=== PATIENT | male | born 1985 | race Caucasian/White ===

== ENCOUNTER 2017-11-20 20:30 | Emergency (ER) | payer SELFPAY | END 2017-11-20 22:35 | disposition home or self-care (01) | LOC: D.ER 20:30 | DX: T40.1X1A Poisoning by heroin, accidental (unintentional), initial encounter (principal); Y92.89 Other specified places as the place of occurrence of the external cause; F17.200 Nicotine dependence, unspecified, uncomplicated; R00.0 Tachycardia, unspecified ==

== ENCOUNTER 2018-01-03 15:44 | Emergency (ER) | payer SELFPAY | END 2018-01-03 16:16 | disposition left against medical advice (07) | LOC: D.ER 15:44 | DX: F11.10 Opioid abuse, uncomplicated (principal); F17.200 Nicotine dependence, unspecified, uncomplicated ==

== ENCOUNTER 2018-08-12 15:56 | Emergency (ER) | payer MEDICAID ==
[~2018-08-12] VITALS: Ht 165.1 cm; Wt 78.2 kg
[2018-08-12 16:19] VITALS: Ht 165.1 cm; Wt 78.2 kg
[2018-08-12 19:21] VITALS: BP 122/84
== END 2018-08-12 20:05 | disposition home or self-care (01) ==
LOC: D.ER 15:56
DX: F07.81 Postconcussional syndrome (principal); M54.5 Low back pain; S32.019A Unspecified fracture of first lumbar vertebra, initial encounter for closed fracture; V49.9XXA Car occupant (driver) (passenger) injured in unspecified traffic accident, initial encounter; Y93.89 Activity, other specified; Y92.410 Unspecified street and highway as the place of occurrence of the external cause; R41.0 Disorientation, unspecified; R42 Dizziness and giddiness; F17.200 Nicotine dependence, unspecified, uncomplicated

== ENCOUNTER 2018-12-12 09:11 | Inpatient (IN) | payer MEDICAID ==
[~2018-12-12] VITALS: Ht 297.2 cm; Wt 83.2 kg
[2018-12-12] MEDS ORDERED: SULFAMETHOXAZOL1 TA3 PO (09:19)
[2018-12-12] MEDS ORDERED: ADDERALL 20 MG20 M1 PO (09:20)
[2018-12-12] MEDS ORDERED: AMBIEN10 MG PO (09:21)
[2018-12-12] MEDS ORDERED: BUPRENORPHINE HC8 MG SL (09:21)
[2018-12-12] MEDS ORDERED: XANAX2 MG PO (09:22)
[2018-12-12] MEDS ORDERED: VALTREX500 MG PO (09:22)
[2018-12-12 11:26] LABS: BASOPHILS 0.5 % (0-2); EOSINOPHILS 4.6 % (0-7); HEMATOCRIT 40.8 % (42.0-54.0); HEMOGLOBIN 14.1 g/dL (13.5-17.5); IMMATURE GRANULOCYTES 0.1 % (0-5); LYMPHOCYTES 20.7 % (15-50); MCHC 34.6 g/dL (31.0-37.0); MCV 89.7 fL (80.0-100.0); MEAN PLATELET VOLUME 9.5 fL (7.4-10.4); MONOCYTES 9.6 % (2-11); NEUTROPHILS 64.5 % (40-80); PLATELET COUNT 206 10x3/uL (130-400); RBC 4.55 10x6/uL (4.20-6.10); RDW 13.5 % (11.5-14.5); WBC 9.2 10x3/uL (4.8-10.8)
[2018-12-12 11:38] VITALS: BP 135/86
[2018-12-12 11:40] LABS: ALBUMIN 3.8 g/dL (3.4-5.0); ALKALINE PHOSPHATASE 82 U/L (46-116); ALT (SGPT) 17 U/L (10-68); BILIRUBIN - TOTAL 0.29 mg/dL (0.2-1.3); CALC OSMOLALITY 274 mosm/kg (275-300); CARBON DIOXIDE 27.5 mmol/L (21.0-32.0); CHLORIDE - SERUM 101 mmol/L (98-107); CREATININE - SERUM 0.9 mg/dL (0.6-1.3); GLUCOSE 116 mg/dL (74-106); POTASSIUM - SERUM 3.6 mmol/L (3.5-5.1); PROTEIN - SERUM 7.5 g/dL (6.4-8.2); SODIUM 138 mmol/L (136-145); UREA NITROGEN 7 mg/dL (7-18); eGFR NON AFRICAN AMERICAN > 90 mL/min (90-120)
[2018-12-12 15:11] VITALS: Ht 297.2 cm; Wt 83.2 kg
[2018-12-12 15:57] VITALS: BP 120/73
[2018-12-12 20:00] VITALS: BP 112/70
[2018-12-13] VITALS: BP 99/54
[2018-12-13 04:30] VITALS: BP 90/43
[2018-12-13 07:30] LABS: BASOPHILS 0.6 % (0-2); EOSINOPHILS 7.4 % (0-7); HEMATOCRIT 40.2 % (42.0-54.0); HEMOGLOBIN 13.9 g/dL (13.5-17.5); IMMATURE GRANULOCYTES 0.1 % (0-5); LYMPHOCYTES 22.9 % (15-50); MCH 30.8 pg (26.0-34.0); MCHC 34.6 g/dL (31.0-37.0); MCV 88.9 fL (80.0-100.0); MEAN PLATELET VOLUME 9.8 fL (7.4-10.4); MONOCYTES 12.2 % (2-11); NEUTROPHILS 56.8 % (40-80); RBC 4.52 10x6/uL (4.20-6.10); RDW 13.6 % (11.5-14.5); WBC 7.1 10x3/uL (4.8-10.8)
[2018-12-13 07:37] LABS: PLATELET COUNT 251 10x3/uL (130-400)
[2018-12-13 07:56] LABS: CALC OSMOLALITY 272 mosm/kg (275-300); CALCIUM 8.6 mg/dL (8.5-10.1); CARBON DIOXIDE 26.5 mmol/L (21.0-32.0); CHLORIDE - SERUM 103 mmol/L (98-107); CREATININE - SERUM 0.9 mg/dL (0.6-1.3); GLUCOSE 104 mg/dL (74-106); POTASSIUM - SERUM 3.8 mmol/L (3.5-5.1); SODIUM 138 mmol/L (136-145); UREA NITROGEN 5 mg/dL (7-18); eGFR NON AFRICAN AMERICAN > 90 mL/min (90-120)
[2018-12-13 09:01] VITALS: BP 118/72
[2018-12-13 12:08] VITALS: BP 96/58
[2018-12-13 15:26] VITALS: BP 116/58
[2018-12-13 18:51] LABS: APPEARANCE CLEAR (CLEAR); COLOR STRAW (YELLOW)
[2018-12-13 18:52] LABS: BILIRUBIN NEGATIVE (NEGATIVE); GLUCOSE NEGATIVE (NEGATIVE); KETONE NEGATIVE (NEGATIVE); NITRITE NEGATIVE (NEGATIVE); PROTEIN NEGATIVE (NEGATIVE); UROBILINOGEN NORMAL (NORMAL)
[2018-12-13 19:06] LABS: UDS - AMPHET NEGATIVE QUAL (NEGATIVE); UDS - BARB NEGATIVE QUAL (NEGATIVE); UDS - BENZO POSITIVE QUAL (NEGATIVE); UDS - COCAINE NEGATIVE QUAL (NEGATIVE); UDS - OPIATE NEGATIVE QUAL (NEGATIVE); UDS - PCP NEGATIVE QUAL (NEGATIVE); UDS - THC NEGATIVE QUAL (NEGATIVE)
[2018-12-13 20:31] VITALS: BP 113/58; BP 146/78
[2018-12-14] VITALS: BP 90/42
[2018-12-14 05:42] VITALS: BP 83/43
[2018-12-14] MEDS ORDERED: CLEOCIN HCL300 MG PO (07:18)
[2018-12-14 08:15] LABS: EOSINOPHILS 9.8 % (0-7); HEMATOCRIT 43.7 % (42.0-54.0); HEMOGLOBIN 14.9 g/dL (13.5-17.5); IMMATURE GRANULOCYTES 0.2 % (0-5); LYMPHOCYTES 42.6 % (15-50); MCH 30.5 pg (26.0-34.0); MCHC 34.1 g/dL (31.0-37.0); MCV 89.5 fL (80.0-100.0); MEAN PLATELET VOLUME 9.5 fL (7.4-10.4); MONOCYTES 12.4 % (2-11); PLATELET COUNT 265 10x3/uL (130-400); RBC 4.88 10x6/uL (4.20-6.10); RDW 13.8 % (11.5-14.5); WBC 5.8 10x3/uL (4.8-10.8)
[2018-12-14 08:23] LABS: CHLORIDE - SERUM 103 mmol/L (98-107); GLUCOSE 97 mg/dL (74-106); SODIUM 141 mmol/L (136-145); eGFR NON AFRICAN AMERICAN > 90 mL/min (90-120)
[2018-12-14 08:33] LABS: CALC OSMOLALITY 279 mosm/kg (275-300); POTASSIUM - SERUM 4.6 mmol/L (3.5-5.1); UREA NITROGEN 10 mg/dL (7-18)
[2018-12-14 09:21] VITALS: BP 98/60
== END 2018-12-14 11:57 | disposition home or self-care (01) | DRG 603 ==
LOC: D.ER 09:11 → D.M3 10:14
PROVIDERS: Emergency Medicine; ADMIT Internal Medicine Nephrology
DX: L03.211 Cellulitis of face (principal); F17.213 Nicotine dependence, cigarettes, with withdrawal; F41.9 Anxiety disorder, unspecified; A60.00 Herpesviral infection of urogenital system, unspecified; M54.9 Dorsalgia, unspecified; G89.29 Other chronic pain

== ENCOUNTER 2019-04-30 20:15 | Emergency (ER) | payer BC ==
[~2019-04-30] VITALS: Ht 170.2 cm; Wt 77.1 kg
[~2019-04-30 20:15] MED LIST: ADDERALL 20 MG20 M1 PO; AMBIEN10 MG PO; BUPRENORPHINE HC8 MG SL; CLEOCIN HCL300 MG PO; SULFAMETHOXAZOL1 TA3 PO; VALTREX500 MG PO; XANAX2 MG PO
[2019-04-30 20:31] VITALS: Ht 170.2 cm; Wt 77.1 kg
[2019-04-30] MEDS ORDERED: VIBRAMYCIN 100100 MG PO (22:02)
[2019-04-30] MEDS ORDERED: IBUPROFEN800 MG PO (22:03)
[2019-04-30 22:56] LABS: BASOPHILS 0.1 % (0-2); HEMATOCRIT 39.4 % (42.0-54.0); HEMOGLOBIN 13.7 g/dL (13.5-17.5); IMMATURE GRANULOCYTES 0.3 % (0-5); LYMPHOCYTES 15.5 % (15-50); MCH 31.7 pg (26.0-34.0); MCHC 34.8 g/dL (31.0-37.0); MCV 91.2 fL (80.0-100.0); MEAN PLATELET VOLUME 10.5 fL (7.4-10.4); MONOCYTES 6.5 % (2-11); NEUTROPHILS 76.6 % (40-80); PLATELET COUNT 246 10x3/uL (130-400); RBC 4.32 10x6/uL (4.20-6.10); RDW 13.9 % (11.5-14.5); WBC 17.2 10x3/uL (4.8-10.8)
[2019-04-30 22:59] LABS: C-REACTIVE PROTEIN 4.9 mg/dL (0.0-0.9)
[2019-04-30 23:11] VITALS: BP 121/78
[2019-04-30 23:32] LABS: ALBUMIN 3.5 g/dL (3.4-5.0); ALKALINE PHOSPHATASE 99 U/L (46-116); ALT (SGPT) 90 U/L (10-68); BILIRUBIN - TOTAL 0.44 mg/dL (0.2-1.3); CALC OSMOLALITY 268 mosm/kg (275-300); CALCIUM 8.7 mg/dL (8.5-10.1); CARBON DIOXIDE 32.3 mmol/L (21.0-32.0); CHLORIDE - SERUM 100 mmol/L (98-107); CREATININE - SERUM 0.9 mg/dL (0.6-1.3); GLUCOSE 89 mg/dL (74-106); POTASSIUM - SERUM 3.6 mmol/L (3.5-5.1); PROTEIN - SERUM 7.6 g/dL (6.4-8.2); SODIUM 136 mmol/L (136-145); UREA NITROGEN 8 mg/dL (7-18); eGFR NON AFRICAN AMERICAN > 90 mL/min (90-120)
== END 2019-04-30 23:12 | disposition home or self-care (01) ==
LOC: D.ER 20:15
PROVIDERS: Emergency Medicine
DX: L03.115 Cellulitis of right lower limb (principal)